=== PATIENT | female | born 1975 | race Caucasian/White ===

== ENCOUNTER 2016-10-31 13:23 | Emergency (ER) | payer SELFPAY ==
--- NOTE | 2016-10-31 14:34 | DIAGNOSTIC IMAGING REPORT ---
PROCEDURE: XR CHEST 2 VIEW INDICATION: CHEST PAIN TECHNIQUE: PA and lateral views. COMPARISON: Chest 03/07/08 FINDINGS: Lungs are clear. Heart and mediastinum are normal. Thorax is normal. IMPRESSION: 1. Negative chest.
--- NOTE | 2016-10-31 14:43 | ED ORDER SUMMARY ---
..... Patient: NATASHA CRAFT OrderSheet [facility] VisitID: [id number] [place] [address] 41y, F Registration Date/Time: 10/31/2016 ORDER SHEET Weight: 90.7 kg (stated) Allergies: None GENERAL ORDERS: Chest 2V Urgent (13:29 10/31/2016 EKoroleva P.A.-C) (Ack 13:43 [place]) (13:52 EHassan R.N.) Home Appliances Mechanic (Continuous) (13:29 10/31/2016 EKoroleva P.A.-C) (Ack 13:46 JBoardley R.N.) (13:52 EHassan R.N.) Cardiac Panel Stat (13:10/31/2016 EKoroleva P.A.-C) (Ack 13:43 Amy) (13:46 JBoardley R.N.) EKG - ER Stat (13:29 10/31/2016 EKoroleva P.A.-C) (13:41 Barry) Urine Urgent (13:30 10/31/2016 EKoroleva P.A.-C) (Ack 13:43 Amy) (13:52 EHassan R.N.) MEDICATION ORDERS: IV FLUIDS: IV Saline Lock (13:29 10/31/2016 EKoroleva P.A.-C) (Cancelled: Other13:30 EKoroleva P.A.-C) ORDER SHEET NOTES: [Electronically signed by Jessy Grant P.A.-C (14:59 10/31/2016)] [Electronically signed by Ramy Joseph R.N. (15:32 10/31/2016)] [Electronically locked/signed by Ramy Joseph R.N. (15:32 10/31/2016)]
--- NOTE | 2016-10-31 14:43 | ED ORDER SUMMARY ---
..... Patient: NATASHA CRAFT OrderSheet [facility] VisitID: [id number] [place] [address] 41y, F Registration Date/Time: 10/31/2016 ORDER SHEET Weight: 90.7 kg (stated) Allergies: None GENERAL ORDERS: Chest 2V Urgent (13:29 10/31/2016 EKoroleva P.A.-C) (Ack 13:43 [place]) (13:52 EHassan R.N.) Biofuels Production Technician (Continuous) (13:29 10/31/2016 EKoroleva P.A.-C) (Ack 13:46 JBoardley R.N.) (13:52 EHassan R.N.) Cardiac Panel Stat (13:10/31/2016 EKoroleva P.A.-C) (Ack 13:43 Amy) (13:46 JBoardley R.N.) EKG - ER Stat (13:29 10/31/2016 EKoroleva P.A.-C) (13:41 Barry) Urine Urgent (13:30 10/31/2016 EKoroleva P.A.-C) (Ack 13:43 Amy) (13:52 EHassan R.N.) MEDICATION ORDERS: IV FLUIDS: IV Saline Lock (13:29 10/31/2016 EKoroleva P.A.-C) (Cancelled: Other13:30 EKoroleva P.A.-C) ORDER SHEET NOTES: [Electronically signed by Jessy Grant P.A.-C (14:59 10/31/2016)] [Electronically signed by Ramy Joseph R.N. (15:32 10/31/2016)] [Electronically locked/signed by Ramy Joseph R.N. (15:32 10/31/2016)]
--- NOTE | 2016-10-31 14:43 | ED NURSING NOTES ---
Clinical Report - Nurses [facility] [place] [address] 10/31/2016 13:23 Patient: NATASHA CRAFT TRIAGE Triage time 13:24. Acuity: LEVEL 3. Chief Complaint: CHEST PAIN and (With Headache). 13:25 10/31/16. 13:10/31/16. Alert. No acute distress. --13:28 Ramy Joseph R.N. 13:24 10/31/16. BP: 139/71. HR: 79. RR: 18. O2 saturation: 100% on room air. Temp: 98.1 F (oral). --13:28 Ramy Joseph R.N. Weight: 90.7 kg stated. Height/Length: 62 inches Per Patient. BMI: 36.6. --13:27 Ramy Joseph R.N. Medications None. --13:27 Ramy Joseph R.N. Medication/allergy information source: the patient and EMS. --13:28 Ramy Joseph R.N. Allergies None. --13:27 Ramy Joseph R.N. History Arrived by private vehicle. Historian: patient. Unaccompanied. 13:10/31/16. This started today. Treatment BILINGUAL CUSTOMER SERVICE SPECIALIST: None. PAST MEDICAL HX: Immunizations: up-to-date. Last normal menstrual period- Oct ended. SOCIAL HX: Current every day heavy tobacco smoker (cigarette)- less than 1 pack per day. No alcohol use or drug use. The patient has not traveled outside the [place] FALL RISK ASSESSMENT: Fall risk assessment completed. No fall risk identified. NUTRITIONAL RISK ASSESSMENT: The nutritional risk assessment revealed no deficiencies. FUNCTIONAL ASSESSMENT: Functional assessment: no impairments noted. LEARNING NEEDS ASSESSMENT: The learning needs assessment revealed no barriers. SKIN INTEGRITY ASSESSMENT: Skin integrity risk assessment completed. No skin integrity risk identified. --13:28 Ramy Joseph R.N. Treatment BILINGUAL CUSTOMER SERVICE SPECIALIST: See EMS report. ( EKG time 1306 by EMS, NSR). --13:32 Ramy Joseph R.N. Primary physician (NONE). --13:33 Ramy Joseph R.N. PROBLEMS: no known problems. ADDITIONAL SURGERIES: Gallbladder Surgery. --13:28 Ramy Joseph R.N. Assessment 13:10/31/16. --13:28 Ramy Joseph R.N. Interventions 13:10/31/16. 13:10/31/16. ID and allergy band on patient. To treatment room. --13:28 Ramy Joseph R.N. PHYSICAL ASSESSMENT 13:10/31/16. GENERAL / NEURO / PSYCH: Alert. Oriented X 4. Appears in no acute distress. RESPIRATORY: Respirations not labored. CVS: Capillary refill less than 2 seconds. SKIN: Skin is warm and dry. --13:26 Ramy Joseph R.N. NURSING PROGRESS NOTES 13:10/31/16. The plan of care for this patient has been created. Head of bed elevated. Two patient identifiers checked. Call light placed in reach. Side rails up x 2. Bed placed in lowest position. Brakes of bed on. Brakes of chair on. --13:26 Ramy Joseph R.N. 13:10/31/16. welding machine feeder, pulse oximeter and NIBP monitor placed on patient; monitor alarms on. --13:26 Ramy Joseph R.N. EKG time: (1340). EKG was ordered, performed by a tech and shown to the ED physician. --13:44 Danielle Stanley 13:47 10/31/16. Blood samples drawn by lab. --13:47 Ramy Joseph R.N. Cardiac rhythm: normal sinus rhythm. Monitoring of patient in place. Reassurance given. Patient ID band checked for patient name, birthdate and medical record number: patient confirmed. Instructions provided to collect clean catch urine and patient verbalized understanding urine collected with return of yellow-colored clear urine; sample sent to lab for urinalysis. Specimen labeled in the presence of the patient. The patient is calm. Overall patient status- she states feels better. RESPIRATORY: Denies difficulty breathing. CVS: Denies chest pain. Two patient identifiers checked. Call light placed in reach. Side rails up x 1. Brakes of bed on. Brakes of chair on. --14:00 Sonya Pickering R.N. 13:59 10/31/16. BP: 123/62 (regular adult cuff) taken on the left arm, via an automated monitor, while lying. HR: 76 (regular). RR: 17. O2 saturation: 94% on room air. Pain level now: 12/16. --14:00 Sonya Pickering R.N. 14:30 10/31/16. --14:30 Ramy Joseph R.N. 14:29 10/31/16. BP: 123/56. HR: 75. RR: 14. O2 saturation: 96% on room air. --14:30 Ramy Joseph R.N. 14:33 10/31/16. Cardiac rhythm: normal sinus rhythm. --14:33 Ramy Joseph R.N. 14:32 10/31/16. BP: 104/50 taken on the left arm, while lying. HR: 74. RR: 20. O2 saturation: 99% on room air. --14:33 Ramy Joseph R.N. 14:35 10/31/16. Cardiac rhythm: normal sinus rhythm. --14:35 Ramy Joseph R.N. 14:34 10/31/16. BP: 121/86 taken while sitting. HR: 77. RR: 16. O2 saturation: 99% on room air. --14:35 Ramy Joseph R.N. 14:36 10/31/16. Cardiac rhythm: normal sinus rhythm. --14:36 Ramy Joseph R.N. 14:35 10/31/16. BP: 115/67 taken while standing. HR: 83. RR: 14. O2 saturation: 100% on room air. --14:36 Ramy Joseph R.N. 14:36 10/31/16. The patient reports no complaints. Overall patient status is improved- she states feels better. --14:36 Ramy Joseph R.N. 14:39 10/31/16. ( Pt walked one loop around RN station. Tolerated well. Denies DUFFY, lightheaded, or chest pain). --14:39 Ramy Joseph R.N. DISPOSITION / DISCHARGE 14:47 10/31/16. Condition at departure: improved. No learning barriers present. Discharge instructions provided and reviewed with electrical lineworker and the patient. Reviewed warnings. Reviewed medication(s). Treatments reviewed. Patient and electrical lineworker verbalized understanding. Written instructions provided in Frisian. The patient was discharged by the physician bankruptcy assistant. She was discharged home and accompanied by electrical lineworker. She left the Emergency Department ambulatory and via private vehicle. Structural Metal Worker driving. --14:47 Ramy Joseph R.N. 14:35 10/31/16. BP: 115/67 taken while standing. HR: 83. RR: 14. O2 saturation: 100% on room air. --14:47 Ramy Joseph R.N. 14:47 10/31/16. Departure time: 14:47. --14:47 Ramy Joseph R.N. Locked/Released at 10/31/2016 15:32 by Ramy Joseph R.N.
--- NOTE | 2016-10-31 14:43 | ED NURSING NOTES ---
Clinical Report - Nurses [facility] [place] [address] 10/31/2016 13:23 Patient: NATASHA CRAFT TRIAGE Triage time 13:24. Acuity: LEVEL 3. Chief Complaint: CHEST PAIN and (With Headache). 13:25 10/31/16. 13:10/31/16. Alert. No acute distress. --13:28 Ramy Joseph R.N. 13:24 10/31/16. BP: 139/71. HR: 79. RR: 18. O2 saturation: 100% on room air. Temp: 98.1 F (oral). --13:28 Ramy Joseph R.N. Weight: 90.7 kg stated. Height/Length: 62 inches Per Patient. BMI: 36.6. --13:27 Ramy Joseph R.N. Medications None. --13:27 Ramy Joseph R.N. Medication/allergy information source: the patient and EMS. --13:28 Ramy Joseph R.N. Allergies None. --13:27 Ramy Joseph R.N. History Arrived by private vehicle. Historian: patient. Unaccompanied. 13:10/31/16. This started today. Treatment SPRINKLER TENDER: None. PAST MEDICAL HX: Immunizations: up-to-date. Last normal menstrual period- Oct ended. SOCIAL HX: Current every day heavy tobacco smoker (cigarette)- less than 1 pack per day. No alcohol use or drug use. The patient has not traveled outside the [place] FALL RISK ASSESSMENT: Fall risk assessment completed. No fall risk identified. NUTRITIONAL RISK ASSESSMENT: The nutritional risk assessment revealed no deficiencies. FUNCTIONAL ASSESSMENT: Functional assessment: no impairments noted. LEARNING NEEDS ASSESSMENT: The learning needs assessment revealed no barriers. SKIN INTEGRITY ASSESSMENT: Skin integrity risk assessment completed. No skin integrity risk identified. --13:28 Ramy Joseph R.N. Treatment SPRINKLER TENDER: See EMS report. ( EKG time 1306 by EMS, NSR). --13:32 Ramy Joseph R.N. Primary physician (NONE). --13:33 Ramy Joseph R.N. PROBLEMS: no known problems. ADDITIONAL SURGERIES: Gallbladder Surgery. --13:28 Ramy Joseph R.N. Assessment 13:10/31/16. --13:28 Ramy Joseph R.N. Interventions 13:10/31/16. 13:10/31/16. ID and allergy band on patient. To treatment room. --13:28 Ramy Joseph R.N. PHYSICAL ASSESSMENT 13:10/31/16. GENERAL / NEURO / PSYCH: Alert. Oriented X 4. Appears in no acute distress. RESPIRATORY: Respirations not labored. CVS: Capillary refill less than 2 seconds. SKIN: Skin is warm and dry. --13:26 Ramy Joseph R.N. NURSING PROGRESS NOTES 13:10/31/16. The plan of care for this patient has been created. Head of bed elevated. Two patient identifiers checked. Call light placed in reach. Side rails up x 2. Bed placed in lowest position. Brakes of bed on. Brakes of chair on. --13:26 Ramy Joseph R.N. 13:10/31/16. cardiac monitor technician, pulse oximeter and NIBP monitor placed on patient; monitor alarms on. --13:26 Ramy Joseph R.N. EKG time: (1340). EKG was ordered, performed by a tech and shown to the ED physician. --13:44 Danielle Stanley 13:47 10/31/16. Blood samples drawn by lab. --13:47 Ramy Joseph R.N. Cardiac rhythm: normal sinus rhythm. Monitoring of patient in place. Reassurance given. Patient ID band checked for patient name, birthdate and medical record number: patient confirmed. Instructions provided to collect clean catch urine and patient verbalized understanding urine collected with return of yellow-colored clear urine; sample sent to lab for urinalysis. Specimen labeled in the presence of the patient. The patient is calm. Overall patient status- she states feels better. RESPIRATORY: Denies difficulty breathing. CVS: Denies chest pain. Two patient identifiers checked. Call light placed in reach. Side rails up x 1. Brakes of bed on. Brakes of chair on. --14:00 Sonya Pickering R.N. 13:59 10/31/16. BP: 123/62 (regular adult cuff) taken on the left arm, via an automated monitor, while lying. HR: 76 (regular). RR: 17. O2 saturation: 94% on room air. Pain level now: 12/16. --14:00 Sonya Pickering R.N. 14:30 10/31/16. --14:30 Ramy Joseph R.N. 14:29 10/31/16. BP: 123/56. HR: 75. RR: 14. O2 saturation: 96% on room air. --14:30 Ramy Joseph R.N. 14:33 10/31/16. Cardiac rhythm: normal sinus rhythm. --14:33 Ramy Joseph R.N. 14:32 10/31/16. BP: 104/50 taken on the left arm, while lying. HR: 74. RR: 20. O2 saturation: 99% on room air. --14:33 Ramy Joseph R.N. 14:35 10/31/16. Cardiac rhythm: normal sinus rhythm. --14:35 Ramy Joseph R.N. 14:34 10/31/16. BP: 121/86 taken while sitting. HR: 77. RR: 16. O2 saturation: 99% on room air. --14:35 Ramy Joseph R.N. 14:36 10/31/16. Cardiac rhythm: normal sinus rhythm. --14:36 Ramy Joseph R.N. 14:35 10/31/16. BP: 115/67 taken while standing. HR: 83. RR: 14. O2 saturation: 100% on room air. --14:36 Ramy Joseph R.N. 14:36 10/31/16. The patient reports no complaints. Overall patient status is improved- she states feels better. --14:36 Ramy Joseph R.N. 14:39 10/31/16. ( Pt walked one loop around RN station. Tolerated well. Denies DUFFY, lightheaded, or chest pain). --14:39 Ramy Joseph R.N. DISPOSITION / DISCHARGE 14:47 10/31/16. Condition at departure: improved. No learning barriers present. Discharge instructions provided and reviewed with heat seal operator and the patient. Reviewed warnings. Reviewed medication(s). Treatments reviewed. Patient and heat seal operator verbalized understanding. Written instructions provided in Slovak. The patient was discharged by the physician metal forger's assistant. She was discharged home and accompanied by heat seal operator. She left the Emergency Department ambulatory and via private vehicle. Package Sealer Machine driving. --14:47 Ramy Joseph R.N. 14:35 10/31/16. BP: 115/67 taken while standing. HR: 83. RR: 14. O2 saturation: 100% on room air. --14:47 Ramy Joseph R.N. 14:47 10/31/16. Departure time: 14:47. --14:47 Ramy Joseph R.N. Locked/Released at 10/31/2016 15:32 by Ramy Joseph R.N.
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
--- NOTE | 2016-10-31 15:32 | ED MED RECONCILIATION SUMMARY ---
Patient: NATASHA CRAFT Medication Reconciliation Report [facility] VisitID: [id number] [address] [place] [place] [address] 41y, F Registration Date/Time: 10/31/2016 Weight: 90.7 kg Height/Length: 62 in. BMI: 36.6 ALLERGIES: None The patient's Home Medications are listed below: NONE. The source(s) of the original Home Medication information: EMS patient The following Medications were given to the patient in the Emergency Department: None. The following Medications were prescribed to the patient: None.
--- NOTE | 2016-10-31 15:32 | ED DISCHARGE INSTRUCTIONS ---
Patient: NATASHA CRAFT General Instructions [facility] VisitID: [id number] [place] [address] 41y, F Registration Date/Time: 10/31/2016 Acute headache (resolved). Chest pain .12 lead EKG performed. An EKG was not performed because a benign etiology was evident without doing an EKG. (resolved). INSTRUCTIONS No strenuous activity. Rest. Do not work today, tomorrow. Warnings: Further evaluation is necessary. GENERAL WARNINGS: Return or contact your physician immediately if your condition worsens or changes unexpectedly, if not improving as expected, or if other problems arise. Follow-up: Follow up with your doctor in three days. ADDITIONAL INFORMATION Headache [Unspecified] The cause of your headache today is not clear, but it does not appear to be the sign of any serious illness. Under stress, some people tense the muscles of their shoulder, neck and scalp without knowing it. If this condition lasts long enough, a TENSION HEADACHE can occur. A MIGRAINE HEADACHE is caused by changes in blood flow to the brain. A migraine attack may be triggered by emotional stress, hormone changes during the menstrual cycle, oral contraceptives, alcohol use, certain foods containing tyramine, eye strain, weather changes, missing meals, lack of sleep or oversleeping. Other causes of headache include a viral illness with high fever, head injury with concussion, sinus, ear or throat infection, dental pain and TMJ (jaw joint) pain. More serious but less common causes of headache include stroke, brain hemorrhage, brain tumor, meningitis and encephalitis. Home Care: If you were given pain medicine for this headache, do not drive yourself home. Arrange for a ride, instead. When you get home, try to sleep. You should feel much better when you wake up. Apply heat to the back of your neck to relieve neck muscle spasm. Migraine headaches may respond best to an ice pack on the forehead or at the base of the skull. If you are having nausea or vomiting, follow a light diet until your headache is relieved. If you have a migraine type headache, use sunglasses when in the daylight or around bright indoor lighting until symptoms improve. Bright glaring light can worsen this kind of headache. Follow Up with your doctor if the headache is not better within the next 24 hours. If you have frequent headaches you should discuss a treatment plan with your primary care doctor. By being aware of the earliest signs of headache, and starting treatment right away, you may be able to stop the pain yourself. Get Prompt Medical Attention if any of the following occur: Worsening of your head pain or no improvement within 24 hours Repeated vomiting (unable to keep liquids down) Fever of 100.4F (38C) or higher, or as directed by your healthcare provider Stiff neck Extreme drowsiness, confusion or fainting Dizziness, vertigo (dizziness with spinning sensation) Weakness of an arm or leg or one side of the face Difficulty with speech or vision Chest Pain, Uncertain Cause Chest pain can happen for a number of reasons. Sometimes the cause can not be determined. If yourcondition does not seem serious, and your pain does not appear to be coming from your heart, your doctor may recommend watching it closely. Sometimes the signs of a serious problem take more time to appear. Therefore, watch for the warning signs listed below. Home care After your visit, follow these recommendations: Rest today and avoid strenuous activity. Take any prescribed medicine as directed. Follow-up care Follow up with your doctor or this facility as instructed or if you do not start to feel better within 24 hours. Call 911 Get immediate medical attention if any of the following occur: A change in the type of pain: if it feels different, becomes more severe, lasts longer, or begins to spread into your shoulder, arm, neck, jaw or back Shortness of breath or increased pain with breathing Weakness, dizziness, or fainting Rapid heart beat Get prompt medical attention Call your doctor right away if any of the following occur: Cough with dark colored sputum (phlegm) or blood Fever of 100.4F(38C) or higher, or as directed by your health care provider Swelling, pain or redness in one leg You have been given the following additional information: Headache, Unspecified Chest Pain, Uncertain Cause No strenuous activity. Rest. Do not work today, tomorrow. (Electronically signed by Jessy Grant P.A.-C 10/31/2016 14:59)
--- NOTE | 2016-10-31 15:32 | ED MAR SUMMARY ---
..... Medication Administration Record [facility] [address] [place], [place] [id number] Patient: NATASHA CRAFT Visit ID: [id number] 41y, F Weight: 90.7 kg Height/Length: 62 in BMI: 36.6 ALLERGIES: None
--- NOTE | 2016-10-31 15:32 | ED MED RECONCILIATION SUMMARY ---
Patient: NATASHA CRAFT Medication Reconciliation Report [facility] VisitID: [id number] [address] [place] [address] 41y, F Registration Date/Time: 10/31/2016 Weight: 90.7 kg Height/Length: 62 in. BMI: 36.6 ALLERGIES: None The patient's Home Medications are listed below: NONE. The source(s) of the original Home Medication information: EMS patient The following Medications were given to the patient in the Emergency Department: None. The following Medications were prescribed to the patient: None.
--- NOTE | 2016-10-31 15:32 | ED MAR SUMMARY ---
..... Medication Administration Record [facility] [address] [place], [place] [id number] Patient: NATASHA CRAFT Visit ID: [id number] 41y, F Weight: 90.7 kg Height/Length: 62 in BMI: 36.6 ALLERGIES: None
== END 2016-10-31 14:47 | disposition home or self-care (01) ==
LOC: ED SRH 13:23
DX: R51 Headache (principal); R07.9 Chest pain, unspecified; F17.200 Nicotine dependence, unspecified, uncomplicated
CPT/HCPCS: 90074; 90100; 90616; 92610; 92720; 93070; 95059

== ENCOUNTER 2017-03-01 20:37 | Emergency (ER) | payer SELFPAY ==
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
--- NOTE | 2017-03-01 21:32 | ED ORDER SUMMARY ---
..... Patient: NATASHA CRAFT OrderSheet [facility] VisitID: [id number] [address] [place] [address] 41y, F Registration Date/Time: 03/01/2017 ORDER SHEET Weight: 90.7 kg Allergies: No Known Drug Allergy GENERAL ORDERS: MEDICATION ORDERS: Decadron IM 10 mg (NOW) (21:29 03/01/2017 Katey A.R.N.P.) ([facility] 21:37 Layla) (21:45 [facility]) IV FLUIDS: ORDER SHEET NOTES: [Electronically signed by Yashira Flor (21:47 03/01/2017)] [Electronically signed by Joanna Graham A.R.N.P. (22:05 03/01/2017)] [Electronically locked/signed by Yashira Flor (21:47 03/01/2017)]
--- NOTE | 2017-03-01 21:32 | ED ORDER SUMMARY ---
..... Patient: NATASHA CRAFT OrderSheet [facility] VisitID: [id number] [address] [place] [address] 41y, F Registration Date/Time: 03/01/2017 ORDER SHEET Weight: 90.7 kg Allergies: No Known Drug Allergy GENERAL ORDERS: MEDICATION ORDERS: Decadron IM 10 mg (NOW) (21:29 03/01/2017 Katey A.R.N.P.) ([facility] 21:37 Layla) (21:45 [facility]) IV FLUIDS: ORDER SHEET NOTES: [Electronically signed by Yashira Flor (21:47 03/01/2017)] [Electronically signed by Joanna Graham A.R.N.P. (22:05 03/01/2017)] [Electronically locked/signed by Yashira Flor (21:47 03/01/2017)]
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
--- NOTE | 2017-03-01 22:05 | ED MED RECONCILIATION SUMMARY ---
Patient: NATASHA CRAFT Medication Reconciliation Report [facility] VisitID: [id number] [address] [place] [address] 41y, F Registration Date/Time: 03/01/2017 Weight: 90.7 kg Height/Length: 62 in. BMI: 36.6 ALLERGIES: No Known Drug Allergy The patient's Home Medications are listed below: CONTINUE TAKING THE FOLLOWING MEDICATIONS: Diclofenac Oral Methocarbamol Oral The source(s) of the original Home Medication information: patient The following Medications were given to the patient in the Emergency Department: Decadron [IM] IM 10 mg, administered: 03/01/2017 9:45:00 PM The following Medications were prescribed to the patient: Hydrocodone/APAP 5mg / 325mg: take 1 orally every 6 hours as needed for pain. Dispense twelve (12). No refill. -- Joanna Graham A.R.N.P. Medrol Dosepak: take according to package directions. Dispense one (1) dosepak. No refill. -- Joanna Graham A.R.N.P.
--- NOTE | 2017-03-01 22:05 | ED DISCHARGE INSTRUCTIONS ---
Patient: NATASHA CRAFT General Instructions [facility] VisitID: [id number] [place] [address] 41y, F Registration Date/Time: 03/01/2017 Acute left sided lumbar radiculopathy. No sensory loss or motor deficit. INSTRUCTIONS Apply ice. Limit lifting. No strenuous activity. Rest. Do not work until released. (Medicines as directed. Call your doctor as soon as possible so they can address the work issue and make a plan for you to get better. Return if you have severe increase in your symptoms: more pain, fever, unable to walk because the leg does not work (not just pain), or incontinent). Warnings: CONTROLLED SUBSTANCE WARNINGS: The reason for controlled substance is related to an acute injury. Reviewed the risks and benefits of the medication. Discussed warnings with the patient. GENERAL WARNINGS: Return or contact your physician immediately if your condition worsens or changes unexpectedly, if not improving as expected, or if other problems arise. Your Current Medications: CONTINUE TAKING THE FOLLOWING MEDICATIONS: Diclofenac Oral. Methocarbamol Oral. Prescription Medications: Hydrocodone/APAP 5mg / 325mg: take 1 orally every 6 hours as needed for pain. Dispense twelve (12). No refill. Medrol Dosepak: take according to package directions. Dispense one (1) dosepak. No refill. Follow-up: Follow up with your doctor even if well. Call for the next available appointment. Understanding of the discharge instructions verbalized by patient. ADDITIONAL INFORMATION Sciatica Sciatica ("Lumbar Radiculopathy") causes a pain that spreads from the lower back down into the buttock, hip and leg. Sometimes leg pain can occur without any back pain. Sciatica is due to irritation or pressure on a spinal nerve as it comes out of the spinal canal. This is most often due to a bulge or rupture of a nearby spinal disk (the cartilage cushion between each spinal bone), which presses on a nearby nerve. Other causes include spinal stenosis (narrowing of the spinal canal) and spasm of the pyriform muscle (a muscle in the buttocks that the sciatic nerve passes through). Sciatica may begin after a sudden twisting/bending force (such as in a car accident), or sometimes after a simple awkward movement. In either case, muscle spasm is commonly present and contributes to the pain. The diagnosis of sciatica is made from the symptoms and physical exam. Unless you had a physical injury (such as a car accident or fall), X-rays are usually not ordered for the initial evaluation of sciatica because the nerves and disks cannot be seen on an x-ray. If signs of a compressed nerve are present (for example, loss of tendon reflex or strength in the leg), an MRI (magnetic resonance imaging) scan will need to be scheduled as an outpatient. Most sciatica (80-90%) gets better with medicine, exercise, physical therapy. If symptoms continue after at least three months of medical treatment, surgery may be considered. Home Care: You may need to stay in bed the first few days. But, as soon as possible, begin sitting or walking to avoid problems with prolonged bed rest. When in bed, try to find a position of comfort. A firm mattress is best. Try lying flat on your back with pillows under your knees. You can also try lying on your side with your knees bent up towards your chest and a pillow between your knees. Avoid prolonged sitting. This puts more stress on the lower back than standing or walking. Some persons find relief with heat (hot shower, hot bath or heating pad) and massage, while others prefer cold packs (crushed or cubed ice in a plastic bag, wrapped in a towel). Try both and use the method that feels best for 20 minutes several times a day. You may use acetaminophen (Tylenol) or ibuprofen (Motrin, Advil) to control pain, unless another pain medicine was prescribed. [ NOTE: If you have chronic liver or kidney disease or ever had a stomach ulcer or GI bleeding, talk with your doctor before using these medicines.] Be aware of safe lifting methods and do not lift anything over 15 pounds until all the pain is gone. Follow Up with your doctor or this facility if your symptoms do not start to improve after one week. Physical therapy or further testing may be needed. [NOTE: If X-rays were taken, they will be reviewed by a radiologist. You will be notified of any new findings that may affect your care.] Get Prompt Medical Attention if any of the following occur: Pain becomes worse, not controlled by the prescribed medicine Weakness or numbness in one or both legs Numbness in the groin, genital area Loss of bowel or bladder control You have been given the following additional information: Back Pain W/ Sciatica Limit lifting. No strenuous activity. Rest. Do not work until released. (Electronically signed by Joanna Graham A.R.N.P. 03/01/2017 22:05)
--- NOTE | 2017-03-01 22:05 | ED MAR SUMMARY ---
..... Medication Administration Record [facility] [address] [place] [address] Patient: NATASHA CRAFT Visit ID: [id number] 41y, F Weight: 90.7 kg Height/Length: 62 in BMI: 36.6 ALLERGIES: No Known Drug Allergy Given 21:45 03/01/2017 Yashira Flor, Medication Administered: DECADRON [IM] (DEXAMETHASONE SODIUM PHOSPHATE), Dose: 10 mg IM. Medication Ordered: Decadron IM 10 mg (NOW).
--- NOTE | 2017-03-01 22:05 | ED MED RECONCILIATION SUMMARY ---
Patient: NATASHA CRAFT Medication Reconciliation Report [facility] VisitID: [id number] [address] [place] [address] 41y, F Registration Date/Time: 03/01/2017 Weight: 90.7 kg Height/Length: 62 in. BMI: 36.6 ALLERGIES: No Known Drug Allergy The patient's Home Medications are listed below: CONTINUE TAKING THE FOLLOWING MEDICATIONS: Diclofenac Oral Methocarbamol Oral The source(s) of the original Home Medication information: patient The following Medications were given to the patient in the Emergency Department: Decadron [IM] IM 10 mg, administered: 03/01/2017 9:45:00 PM The following Medications were prescribed to the patient: Hydrocodone/APAP 5mg / 325mg: take 1 orally every 6 hours as needed for pain. Dispense twelve (12). No refill. -- Joanna Graham A.R.N.P. Medrol Dosepak: take according to package directions. Dispense one (1) dosepak. No refill. -- Joanna Graham A.R.N.P.
--- NOTE | 2017-03-01 22:05 | ED MAR SUMMARY ---
..... Medication Administration Record [facility] [address] [place] [address] Patient: NATASHA CRAFT Visit ID: [id number] 41y, F Weight: 90.7 kg Height/Length: 62 in BMI: 36.6 ALLERGIES: No Known Drug Allergy Given 21:45 03/01/2017 Yashira Flor, Medication Administered: DECADRON [IM] (DEXAMETHASONE SODIUM PHOSPHATE), Dose: 10 mg IM. Medication Ordered: Decadron IM 10 mg (NOW).
== END 2017-03-01 21:40 | disposition home or self-care (01) ==
LOC: ED SRH 20:37
DX: M54.16 Radiculopathy, lumbar region (principal); W19.XXXA Unspecified fall, initial encounter; F17.210 Nicotine dependence, cigarettes, uncomplicated